=== PATIENT | male | born 1975 | race Caucasian/White ===

== ENCOUNTER 2017-05-14 09:51 | Emergency (ER) | payer OTHER ==
[~2017-05-14] VITALS: Ht 175.3 cm; Wt 108.9 kg
[2017-05-14 09:58] VITALS: BP 160/109
--- NOTE | 2017-05-14 10:06 | NUR ---
PT AMBULATED TO BED 7.
--- NOTE | 2017-05-14 10:08 | NUR ---
41M BIB SELF C/O HIGH BLOOD PRESSURE X 5 DAYS; PT C/O THROBBING ANTERIOR HEADACHE, RADIATES TO POSTERIOR HEAD, 9/10 X 2 DAYS; PT STATES NO TRAUMA OR INJURY TO SITE AT THIS TIME; PT STATES NO BLURRY VISION OR VISION CHANGES AT THIS TIME; PT AA&OX4, PERRLA, BL LUNG SOUNDS CLEAR, RR EVEN/UNLABORED, SKIN IS WARM/DRY/INTACT; PT NOTED WITH HEALED SCAR TO BACK FROM ABCESSES; PT STATES NO PAIN TO SITE AT THIS TIME; PT STATES NO N/V/D AT THIS TIME; STEADY GAIT; PT RESTING IN BED WITH HOB ELEVATED AND IN LOWEST POSITIONED, POSITIONED FOR COMFORT; ER MD MADE AWARE OF STATUS; WILL CONTINUE TO MONITOR.
--- NOTE | 2017-05-14 10:10 | NUR ---
ER MD DR. LOPEZ EVALUATING PT AT BEDSIDE.
[2017-05-14] MEDS ORDERED: cloNIDine 0.1 MG TAB PO ONE (10:15)
--- NOTE | 2017-05-14 10:23 | NUR ---
CHECKED PT'S BP AT 1021 PRIOR TO ADMINISTRATION OF CLONIDINE ORDERED PER ER MD DR. LOPEZ; BP 117/95; RECHECKED BP AT 1023, BP 125/93; HOLD CLONIDINE PER ER MD DR. LOPEZ; PT POSITIONED FOR COMFORT; WILL CONTINUE TO MONITOR.
--- NOTE | 2017-05-14 10:24 | NUR ---
PT TAKEN TO CT VIA W/C ACCOMPANIED BY [facility] AT THIS TIME.
[2017-05-14] MEDS ORDERED: ACETAMINOPHEN EXTRA STRENGTH 500 MG TAB PO ONE (10:25)
--- NOTE | 2017-05-14 11:04 | NUR ---
LAB AT BEDSIDE AT THIS TIME.
[2017-05-14 11:13] LABS: BASOPHILS # (AUTO) 0.3 K/uL (0.00-0.22); BASOPHILS % (AUTO) 2.7 % (0.0-2.0); EOSINOPHILS # (AUTO) 0.1 K/uL (0-0.4); EOSINOPHILS % (AUTO) 1.3 % (0.0-4.0); HEMATOCRIT 44.1 % (36-52); HEMOGLOBIN 14.8 g/dL (12.0-18.0); LYMPHOCYTES # (AUTO) 2.2 K/uL (2.0-11.5); LYMPHOCYTES % (AUTO) 23.2 % (20.5-51.1); MEAN CORPUSCULAR HEMOGLOBIN 30 pg (27-31); MEAN CORPUSCULAR HGB CONC 34 g/dL (33-37); MEAN CORPUSCULAR VOLUME 88 fL (80-94); MONOCYTES # (AUTO) 0.7 K/uL (0.8-1.0); MONOCYTES % (AUTO) 7.4 % (1.7-9.3); NEUTROPHILS # (AUTO) 6.1 K/uL (1.8-7.7); NEUTROPHILS % (AUTO) 65.4 % (42.2-75.2); PLATELET COUNT (AUTO) 266 K/uL (140-450); RED BLOOD CELL COUNT(AUTO) 5.01 MIL/uL (4.20-6.10); RED CELL DISTRIBUTION WIDTH 11.8 % (11.6-13.7); WHITE BLOOD COUNT (AUTO) 9.4 K/uL (4.8-10.8)
[2017-05-14] MEDS ORDERED: KETOROLAC 60 MG/2 ML VIAL IM ONE (11:15)
[2017-05-14 11:26] LABS: ANION GAP 15.1 (8-16); CARBON DIOXIDE 26.2 mmol/L (21-32); CREATININE 0.7 mg/dL (0.7-1.3); POTASSIUM 4.3 mmol/L (3.5-5.1)
[2017-05-14 11:32] LABS: ALBUMIN 3.9 g/dL (3.4-5.0); TOTAL BILIRUBIN 0.4 mg/dL (0.0-1.0)
[2017-05-14 11:35] LABS: PROTHROMBIN TIME 10.2 secs (10.8-13.4)
--- NOTE | 2017-05-14 11:40 | NUR ---
PT APPEARS TO BE RESTING COMFORTABLY IN BED; VSS; POSITIONED FOR COMFORT; WILL CONTINUE TO MONITOR.
[2017-05-14 11:53] VITALS: BP 119/75
--- NOTE | 2017-05-14 11:53 | NUR ---
Patient discharged with v/s stable. Written and verbal after care instructions given and explained. Patient alert, oriented and verbalized understanding of instructions. Ambulatory with steady gait. All questions addressed prior to discharge. ID band removed. Patient advised to follow up with PMD. Rx of NAPROXEN 500MG AND NORVASC 5MG TAB given. Patient educated on indication of medication including possible reaction and side effects. Opportunity to ask questions provided and answered.
== END 2017-05-14 11:53 | disposition home or self-care (01) ==
LOC: MED 09:51
DX: I10 Essential (primary) hypertension (principal); R51 Headache; Z86.73 Personal history of transient ischemic attack (TIA), and cerebral infarction without residual deficits
CPT/HCPCS: 36415; 70450; 80053; 85025; 85610; 85730; 96372; 99285; J1885

== ENCOUNTER 2019-08-17 06:45 | Emergency (ER) | payer BC ==
[~2019-08-17] VITALS: Ht 175.3 cm; Wt 108.9 kg
[2019-08-17 06:48] VITALS: BP 160/90
--- NOTE | 2019-08-17 06:48 | NUR ---
TO BED # 08 AMBULATORY
--- NOTE | 2019-08-17 07:17 | NUR ---
44/M TO ED WITH C/O GENERALIZED BODY ACHES, HEADAHCE, COUGH. LUNG SOUNDS CLEAR BILATERALLY. NO DISTRESS NOTED. IN BED FOR MSE.
[2019-08-17] MEDS ORDERED: KETOROLAC 60 MG/2 ML VIAL IM ONE (07:30)
--- NOTE | 2019-08-17 08:03 | NUR ---
Dr. Calloway is evaluating the patient at bedside.
[2019-08-17 08:37] VITALS: BP 160/90
== END 2019-08-17 08:23 | disposition home or self-care (01) ==
LOC: MED 06:45
DX: R05 Cough (principal); R07.9 Chest pain, unspecified; M79.10 Myalgia, unspecified site; R50.9 Fever, unspecified; R11.0 Nausea; R07.89 Other chest pain; Z86.73 Personal history of transient ischemic attack (TIA), and cerebral infarction without residual deficits
CPT/HCPCS: 87804; 96372; 99283; J1885